=== PATIENT | female | born 1980 | race Caucasian/White ===

== ENCOUNTER 2016-09-29 07:21 | Emergency (ER) | payer OTHER ==
--- NOTE | ~2016-09-29 | CR72 ---
[facility]. [facility] A Service of [facility] & [facility] RADIOLOGY TEXT RESULTS PATIENT: JAZMINE MONTELONGO LOCATION: SED : [birth year] UNIT #: [id number] AGE: [address]: Olu Islas MD SEX: F ORDER DR: [id number] [place] [id number] E MR#: [id number] Acc #: [id number] NAME: JAZMINE MONTELONGO : 1980 SEX: F STUDY DATE/TIME: 09/29/2016 7:44 UNIT: SED ROOM: STUDY DESCRIPTION: CR Chest Single View Portable Attending Physician: Olu Islas M.D. Ordering Physician: Olu Islas M.D. Primary Care Physician: No Primary Care Physician MEDICAL IMAGING REPORT This report is preliminary unless electronic signature is present. EXAM Frontal chest 09/29/2016. INDICATIONS Cough and fever in a 36-year-old female. Swollen face, lots of mucus, symptoms since last night. History of right breast surgery, but no history of malignancy. COMPARISON Frontal chest compared 08/06/2015. FINDINGS Metallic jewelry artifact associated with the nipples bilaterally. Cardiac silhouette is within normal limits. The vascularity is normal and the lungs are clear. There is no pneumothorax or effusion. IMPRESSION 1. Negative frontal chest. No significant change. Dictated by... Jesus Dao M.D. THIS IS AN ELECTRONICALLY VERIFIED REPORT Jesus Dao M.D. at 09/29/2016 3:00 PM Jeanne TD: 09/29/2016 14:04 JOB #: [id number] MEDICAL IMAGING REPORT
[~2016-09-29 07:21] MED LIST: ALBUTEROL17 GM INH; ARTIFICIAL TEAR15 M9 OU; AUGMENTIN875 MG PO; COREG PO; FLEXERIL10 MG PO; MEDROL DOSEPAK4 MG PO; NO MEDICATIONS; OMNIPRED10 ML OU; PHENERGAN25 M1 PO; VOLTAREN75 MG PO
[2016-09-29 07:45] LABS: INFLUENZA A NEG (NEG); INFLUENZA B NEG (NEG)
== END 2016-09-29 08:10 | disposition home or self-care (01) ==
LOC: SED 07:21
PROVIDERS: Emergency Medicine
DX: J20.9 Acute bronchitis, unspecified (principal); J01.20 Acute ethmoidal sinusitis, unspecified; J01.00 Acute maxillary sinusitis, unspecified; J45.909 Unspecified asthma, uncomplicated; Z98.890 Other specified postprocedural states; Z88.2 Allergy status to sulfonamides; Z88.1 Allergy status to other antibiotic agents
CPT/HCPCS: 71010; 87651; 87804; 99283